=== PATIENT | female | born 1975 | race Caucasian/White ===

== ENCOUNTER → 2021-01-13 10:09 | Outpatient (CLI) | payer BC, SELFPAY ==
--- NOTE | 2021-01-13 10:20 | RAD_ITS ---
STUDY: X-RAY - LUMBAR SPINE REASON FOR EXAM: Female, 45 years old. Low back pain and stiffness TECHNIQUE: 2 view(s) of the lumbar spine were obtained. COMPARISON: None FINDINGS: Normal lumbar lordosis. There is no substantial scoliosis. There is a normal alignment of the vertebrae. Normal vertebral bodies and endplates. Normal disc space heights. Evidence of previous tubal ligation RAD/Lumbar Spine 2 or 3 Views IMPRESSION: Normal x-ray examination of the lumbar spine. Electronically Signed: Jude Cormier MD at 8:01 EDT , Service support ,
--- NOTE | 2021-01-13 10:20 | RAD_ITS ---
STUDY: X-RAY - CERVICAL SPINE REASON FOR EXAM: Female, 45 years old. Neck pain and headache TECHNIQUE: 2 view(s) of the cervical spine were obtained. COMPARISON: None FINDINGS: Normal anterior atlantoaxial articulation. Normal odontoid process. There is straightening of the normal cervical lordosis. Normal vertebral bodies and endplates. Mild disc space narrowing C5-6, otherwise disc spaces well-maintained. Normal visualized intervertebral neuroforamina. The soft tissue structures are unremarkable. RAD/Cerv Spine 2 or 3 Views IMPRESSION: Mild degenerative changes at C5-6, otherwise unremarkable cervical spine Electronically Signed: Jude Cormier MD at 11:58 EDT , Service support ,
--- NOTE | 2021-01-13 10:22 | RAD_ITS ---
STUDY: X-RAY - PELVIS REASON FOR EXAM: Female, 45 years old. Acute low back pain TECHNIQUE: One view of the pelvis was obtained. COMPARISON: None. FINDINGS: There is a non-specific bowel gas pattern. Normal visualized soft tissue structures. Evidence of previous tubal ligation Normal bilateral iliac wings, sacroiliac joints and visualized sacrum. Normal visualized bilateral superior and inferior pubic rami. Normal pubic symphysis. Normal ischial tuberosities. Normal visualized right femoral head. Normal right acetabulum. Normal right hip joint. Normal visualized left femoral head. Normal left acetabulum. Normal left hip joint. RAD/Pelvis 1 or 2 Views IMPRESSION: Normal x-ray examination of the pelvis. Electronically Signed: Jude Cormier MD at 8:01 EDT , Service support ,
== END ==
DX: M54.2 Cervicalgia (principal); M54.5 Low back pain
CPT/HCPCS: 72040; 72100; 72170

== ENCOUNTER → 2021-01-20 13:22 | Outpatient (CLI) | payer BC, SELFPAY ==
--- NOTE | 2021-01-20 12:30 | EMB_PTH ---
PATIENT: SALOMON HILL LOC: [facility] U#:[id number] AGE/SX: 49/F ROOM: RE01/20/[address]: Dr. Dmitri Ozuna MD : [id number] BED: DIS: SPEC #: [id number] RECD: 01/20/21 14:29 STATUS: RADHA HUSSEIN #: [id number] WILLI: 01/20/21 12:[address]: Dmitri Ozuna DEPT: SURGICAL PATHOLOGY RECD BY: Urvashi Medrano Tissues: Endometrium, NOS Procedures: Surgery Specimen Level IV HEADER OPERATION: Endometrial biopsy PRE-OP DIAGNOSIS: N93.9 TISSUE SUBMITTED: Endometrial biopsy MICROSCOPIC DIAGNOSIS Endometrial biopsy: Interval endometrium (late proliferative/early secretory endometrium). DUSTIN:olinda 01/24/2021 MICROSCOPIC DESCRIPTION Slides are reviewed. GROSS DESCRIPTION Received in fixative is one container labeled with the patient's name and designated EM biopsy. The specimen consists of multiple fragments of moss-pink hemorrhagic soft tissue that in aggregate measure 2.5 x 1.5 x 0.2 cm. The specimen is totally submitted in one cassette. / SJ:olinda 01/21/21 TC:5 CPT: [id number]
[2021-01-25 10:00] LABS: HPV Reflexed? NOT INDICATED
== END ==
PROVIDERS: Visit Provider Obstetrics & Gynecology
DX: N93.9 Abnormal uterine and vaginal bleeding, unspecified (principal); Z12.4 Encounter for screening for malignant neoplasm of cervix
CPT/HCPCS: 88175; 88305; G0145

== ENCOUNTER → 2022-06-14 | Outpatient (CLI) | payer OTHER, SELFPAY ==
[2022-06-14 18:03] LABS: Progesterone Level 0.76 ng/mL (See Comment)
[2022-06-14 18:15] LABS: Estradiol 69.5 pg/mL; Follicle Stimulating Hormone 22.9 mIU/mL; Luteinizing Hormone 28.2 mIU/mL; T4 Free Direct 0.86 ng/dL (0.76-1.46); Thyroid Stim Hormone (TSH) 1.47 uIU/mL (0.358-3.74)
== END | disposition home or self-care (01) ==
LOC: WOBLAB 17:12
PROVIDERS: Visit Provider Student in an Organized Health Care Education/Training Program
DX: N95.8 Other specified menopausal and perimenopausal disorders (principal)
CPT/HCPCS: 36415; 82670; 83001; 83002; 84144; 84439; 84443

== ENCOUNTER → 2022-07-12 | Outpatient (CLI) | payer OTHER, SELFPAY ==
[2022-07-18 11:45] LABS: HPV APTIMA, High Risk Negative (Negative)
== END | disposition home or self-care (01) ==
PROVIDERS: Visit Provider Student in an Organized Health Care Education/Training Program
DX: Z12.4 Encounter for screening for malignant neoplasm of cervix (principal); R10.2 Pelvic and perineal pain
CPT/HCPCS: 87624; 88175; G0145

== ENCOUNTER → 2024-07-16 | Outpatient (CLI) | payer OTHER, SELFPAY ==
--- NOTE | 2024-07-16 10:30 | BI_ITS ---
PROCEDURE: SCRN MAMM (CAD)W/MARISEL BILAT REASON FOR EXAM: F, Age 49 y/o , Baseline mammogram. TECHNIQUE: Bilateral screening digital breast tomosynthesis with 2D and 3D images. Computer aided detection. COMPARISON: None. This is a baseline mammogram. FINDINGS: There are scattered areas of fibroglandular density. No suspicious masses, areas of developing architectural distortion, or suspicious calcifications. BI/SCRN MAMM (CAD)W/MARISEL BILAT IMPRESSION: BI-RADS 1: NEGATIVE. RECOMMEND ANNUAL MAMMOGRAPHIC SCREENING. Follow-up code: Routine Follow-up The patient will be notified of the results by letter. Reading Location: [place] [id number]
--- NOTE | 2024-07-16 10:30 | US_ITS ---
PROCEDURE: PELVIC W/ TRANSVAGINAL REASON FOR EXAM: Heavy periods. TECHNIQUE: Transabdominal and transvaginal pelvic ultrasound. Color and spectral doppler analysis of the ovarie s. COMPARISON: None. FINDINGS: Measurements: Uterus: 9.1 x 4.2 x 5.7 cm. The uterus is anteverted. Endometrial Thickness: 3 mm. Right Ovary: 2.8 x 2.3 x 1.4 cm. Left Ovary: 2.2 x 2.1 x 1.0 cm. Transabdominal and transvaginal imaging: Uterus: Anteverted. Normal contour and myometrial echotexture. Multiple myometrial uterine fibroids are seen, a partially calcified 13 x 13 x 13 mm fibroid, and 2 h ypoechoic fibroids, 1 measured at 13 x 16 x 9 mm, and the other at 11 x 13 x 7 mm. Endometrium: Normal echotexture. Right ovary: Normal size and echotexture. Left ovary: Normal size and echotexture. Other adnexal findings: None. Cul-de-sac: No free intraperitoneal fluid identified. No tenderness. DOPPLER: Color Doppler: Normal color flow doppler signal at both ovaries. Spectral Doppler: Normal arterial inflow and venous outflow signal at both ovaries. Normal appearance of the urinary bladder is seen, with estimated volume 424 mL. US/Pelvic w/ Transvaginal IMPRESSION: 1. Uterine fibroids are noted, but no acute process is identified. 2. No focal endometrial process is seen. No subendometrial fibroid is apprecia juan jose. Reading Location: [id number]
[2024-07-16 11:36] LABS: Absolute Lymphocyte Count 1.79 X10^3/uL (0.83-4.51); Absolute Neutrophil Count 3.3 X10^3/uL (2.0-7.7); Basophil# 0.03 X10^3/uL; Basophil% 0.5 % (0-1); Eosinophil# 0.12 X10^3/uL; Eosinophils% 2.2 % (0-5); Hematocrit 36.1 % (37-47); Hemoglobin 11.9 g/dL (12.0-15.0); Lymphocyte # 1.79 X10^3/ul (0.83-4.51); Lymphocyte % 32.5 % (19-41); Mean Corpuscular Hgb 28.3 pg (27.0-32.0); Mean Corpuscular Volume 85.7 fL (81-99); Mean Platelet Vol. 8.8 fl (6.2-12.0); Monocyte# 0.29 X10^3/uL; Monocyte% 5.3 % (0-10); NRBC Flagged by Analyzer 0 % (0-5); Neutrophil # 3.26 X10^3/uL (2.7-7.7); Neutrophil % 59.1 % (47-70); Platelet Count 266 K/mm3 (150-450); RBC Distribution Width CV 13.2 % (11.6-14.6); RBC Distribution Width SD 41.1 fl (35.1-43.9); Red Blood Count 4.21 M/mm3 (4.2-5.4); White Blood Count 5.5 K/mm3 (4.4-11.0)
[2024-07-16 11:59] LABS: Vitamin B12 771 pg/mL (211-911); Vitamin D,25 Hydroxy 37.4 ng/mL
[2024-07-16 12:06] LABS: AST(SGOT) 15 U/L (15-37); Alanine Aminotransfer ALT/SGPT 22 U/L (13-56); Albumin, Serum 3.4 g/dL (3.2-5.0); Alkaline Phosphatase 43 U/L (45-117); Anion Gap 7 (5-15); BUN 10 mg/dL (7-18); BUN/Creat Ratio 15.2 RATIO (10-20); Calcium,Total 8.9 mg/dL (8.5-10.1); Chloride 108 mmol/L (98-107); Creatinine, Serum 0.66 mg/dL (0.55-1.02); EST Glomerular Filtration Rate 102 mL/min (>60); Est Glom Filt Rate - Afr Amer 123 mL/min (>60); Free T3 2.3 pg/mL (2.18-3.98); Globulin 3.4 g/dL (2.2-4.2); Glucose 96 mg/dL (74-106); Potassium 3.7 mmol/L (3.5-5.1); Protein, Total 6.8 g/dL (6.4-8.2); Sodium Level 141 mmol/L (136-145); T4 Free Direct 0.84 ng/dL (0.76-1.46)
== END | disposition home or self-care (01) ==
PROVIDERS: PCP Family Medicine; Referring Provider Nurse Practitioner Family; Visit Provider Nurse Practitioner Family
DX: Z12.31 Encounter for screening mammogram for malignant neoplasm of breast (principal); Z13.29 Encounter for screening for other suspected endocrine disorder; N92.0 Excessive and frequent menstruation with regular cycle; Z13.21 Encounter for screening for nutritional disorder
CPT/HCPCS: 36415; 76830; 76856; 77063; 77067; 80053; 82306; 82607; 84439; 84443; 84481; 85025